=== PATIENT | male | born 1950 | race American Indian/Alaskan Native ===

== ENCOUNTER 2024-12-13 10:08 | Outpatient (CLI) | payer MEDICARE, OTHER ==
--- NOTE | 2024-12-13 15:42 | RADIOLOGY REPORT ---
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 opposing cartilage thinning of the medial weight-bearing compartment LATERAL COMPARTMENT: Globular intrasubstance signal involving the inner 2/3 of the body of the latera l meniscus (4-17). Finding may represent underlying tearing incompletely characterized versus granula tion tissue. No focal chondrosis or subchondral edema. PATELLOFEMORAL COMPARTMENT: No focal chondrosis or subchondral edema. CRUCIATE LIGAMENTS: Question mucoid degenerative change with thickening and intermediate to high sign al of the anterior cruciate ligament. posterior cruciate ligament intact. MEDIAL SUPPORTING STRUCTURES: Intact medial collateral ligament. LATERAL SUPPORTING STRUCTURES: Intact iliotibial band, lateral capsular ligament, fibular collateral ligament, popliteus, and biceps femoris tendons EXTENSOR MECHANISM: Intact JOINT SPACE/FLUID: Trace knee joint fluid. Trace Lepe's cyst. BONES: No acute fracture, osseous contusion, or aggressive focal osseous lesion MUSCLES: Normal in signal intensity and morphology NEUROVASCULAR: Unremarkable OTHER: None IMPRESSION: 1. Volume loss with truncation likely compatible with chronic tearing of the body of the medial menis cus. 2. Globular intrasubstance signal involving the inner 2/3 of the body of the lateral meniscus. Findin g may represent underlying tearing incompletely characterized versus granulation tissue. 3. Mucoid degenerative change with thickening and intermediate to high signal of the anterior cruciat e ligament.
== END 2024-12-13 23:59 | disposition home or self-care (01) ==
LOC: MRI02 10:08
PROVIDERS: ATTEND Family Medicine Sports Medicine
DX: M17.11 Unilateral primary osteoarthritis, right knee (principal); M21.161 Varus deformity, not elsewhere classified, right knee; M77.9 Enthesopathy, unspecified; M25.551 Pain in right hip
CPT/HCPCS: 73721